=== PATIENT | female | born 1940 | race Caucasian/White ===

== ENCOUNTER 2018-08-24 06:50 | Emergency (ER) | payer BC, MEDICARE ==
[~2018-08-24] VITALS: Ht 154.9 cm; Wt 70.3 kg
--- NOTE | 2018-08-24 06:56 | NUR ---
PT BIB [facility]. PT IS A/OX4, RESPONSIVE TO VERBAL AND TACTILE STIMULI. PT C/O INTERMITTENT C/P X 2 HOURS (MIDSTERNAL). PT WAS RESTING AT HOME PRIOR TO START OF C/P. PT SHAISTA ANY C/P CURRENTLY. VSS. PT RAPID A-FIB ON MONITOR AND EKG. PT DENIES PAIN, SOB, N/V/D, DIZZINESS, HEADACHE. PT IN BED. BED IN LOW AND LOCKED POSITION WITH BILATERAL SIDERAILS UP. AT BEDSIDE.
[2018-08-24] MEDS ORDERED: IV NORMAL SALINE 500 ML BAG IV ONE (07:00)
--- NOTE | 2018-08-24 07:06 | NUR ---
PT SHOWING SR ON MONITOR.
--- NOTE | 2018-08-24 07:06 | NUR ---
HAND-OFF REPORT GIVEN TO CARO BAER. PT RESTING IN BED AT THIS TIME. NOT IN ANY APPARENT DISTRESS. VSS.
[2018-08-24] MEDS ORDERED: CLON0.5T PO (07:13)
[2018-08-24] MEDS ORDERED: ASPI-605 PO (07:13)
[2018-08-24] MEDS ORDERED: LISI-603 PO (07:13)
[2018-08-24] MEDS ORDERED: ATOR20TA PO (07:20)
[2018-08-24] MEDS ORDERED: OMEP20TA5 PO (07:20)
[2018-08-24] MEDS ORDERED: CARB-93 PO ×2 (07:20)
[2018-08-24] MEDS ORDERED: RANI150C4 PO (07:20)
[2018-08-24] MEDS ORDERED: SERT100T PO (07:20)
[2018-08-24] MEDS ORDERED: CARB-95 PO (07:20)
[2018-08-24 07:30] LABS: BASOPHILS % (AUTO) 0.9 % (0.0-2.0); EOSINOPHILS # (AUTO) 0.1 K/uL (0.0-0.7); EOSINOPHILS % (AUTO) 1.5 % (0.0-7.0); HEMATOCRIT 42.1 % (31.2-41.9); HEMOGLOBIN 14.2 g/dL (10.9-14.3); LYMPHOCYTES # (AUTO) 1.2 K/uL (20.0-40.0); LYMPHOCYTES % (AUTO) 23.7 % (20.5-51.5); MEAN CORPUSCULAR HEMOGLOBIN 30.2 uug (24.7-32.8); MEAN CORPUSCULAR HGB CONC 34 g/dL (32.3-35.6); MEAN CORPUSCULAR VOLUME 89.6 fL (75.5-95.3); MONOCYTES # (AUTO) 0.6 K/uL (2.0-10.0); MONOCYTES % (AUTO) 11.9 % (0.0-11.0); NEUTROPHILS # (AUTO) 3.2 K/uL (1.8-8.9); PLATELET COUNT (AUTO) 138 K/uL (179-408); WHITE BLOOD COUNT (AUTO) 5.2 K/uL (3.8-11.8)
[2018-08-24 07:38] LABS: CARBON DIOXIDE 26 mmol/L (21-32); CHLORIDE 111 mmol/L (98-107); CREATININE 0.9 mg/dL (0.6-1.3); GLUCOSE 118 mg/dL (74-106); POTASSIUM 4.2 mmol/L (3.5-5.1); UREA NITROGEN, BLOOD 19 mg/dL (7-18)
[2018-08-24 07:51] LABS: ALANINE AMINOTRANSFERASE 8 U/L (14-59); ALKALINE PHOSPHATASE 126 U/L (50-136); ASPARTATE AMINOTRANSFERASE 14 U/L (15-37); BILIRUBIN,DIRECT 0.1 mg/dL (0.0-0.2); BILIRUBIN,TOTAL 0.6 mg/dL (0.2-1.0); TOTAL PROTEIN, SERUM 6.5 g/dL (6.4-8.2)
--- NOTE | 2018-08-24 09:00 | NUR ---
PT WAS D/C TO HOME AFTER DR ADAN RE-EVALUATION. D/C INSTRUCTIONS GIVEN TO THE PT.
[2018-08-24 09:02] VITALS: BP 132/77
== END 2018-08-24 09:15 | disposition other institution (70) ==
LOC: ER 06:56
DX: R07.89 Other chest pain (principal); I10 Essential (primary) hypertension; I48.91 Unspecified atrial fibrillation; Z88.0 Allergy status to penicillin
CPT/HCPCS: 36415; 71045; 80048; 80076; 83880; 84484; 85025; 85730; 93005 ×2; 99285; A4663; J7040; 70030-TC